=== PATIENT | male | born 1975 | race Caucasian/White ===

== ENCOUNTER 2019-12-01 08:58 | Inpatient (IN) | payer OTHER ==
[2019-12-01 09:46] VITALS: BMI 41.8
--- NOTE | 2019-12-01 10:17 | HP ---
CIWA Score Nausea/Vomitin Muscle Tremors: 3 Anxiety: 3 Agitation: 3 Paroxysmal Sweats: 1-Minimal Palms Moist Orientation: 0-Oriented Tacttile Disturbances: 1-Very Mild Itch/Numbness Auditory Disturbances: 0-None Visual Disturbances: 0-None Headache: 2-Mild CIWA-Ar Total Score: 15 - Admission Criteria OASAS Guidelines: Admission for Medically Managed Detox: Requires at least one of the followin. CIWA greater than 12 2. Seizures within the past 24 hours 3. Delirium tremens within the past 24 hours 4. Hallucinations within the past 24 hours 5. Acute intervention needed for co occurring medical disorder 6. Acute intervention needed for co occurring psychiatric disorder 7. Severe withdrawal that cannot be handled at a lower level of care (continued vomiting, continued diarrhea, abnormal vital signs) requiring intravenous medication and/or fluids 8. 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 Pulmonary: Yes: Asthma, Other (TIANA) Infectious Disease: Yes: Other (h/o recurrent celullitis ,) Dermatology: Yes: Other - Past Surgical History Additional Past Surgical History: varicose veins surgery in 2013 - Smoking History Smoking history: Current every day smoker Have you smoked in the past 12 months: Yes Aproximately how many cigarettes per day: 20 - Alcohol/Substance Use Hx Alcohol Use: No History of Substance Use: reports: Heroin (lat dose yesterday) - Social History Usual Living Arrangement: Yes: With Spouse ADL: Support Services Occupation: disable Admission ROS S - [employer] Chief Complaint: i need help to stop drinking alcohol.also heroin,xanax abused,mmtp 130 mgs/day Allergies/Adverse Reactions: Allergies Allergy/AdvReac Type Severity Reaction Status Date / Time Sulfa (Sulfonamide Allergy Intermediate Swelling Verified 12/01/19 09:25 Antibiotics) [Sulfa(Sulfonamide Antibiotics)] History of Present Illness: this 44 years old male with alcohol dependence,also heroin,xanax abused,mmtp 130 mgs/day,last medicated today last treatment in 2014 syncope denied seizure nicotine dependence longest sobriety 2 years varicose vein surgery in 2014 cellulitis left leg Exam Limitations: No Limitations - Ebola screening Have you traveled outside of the country in the last 21 days: No Have you had contact with anyone from an Ebola affected area: No Do you have a fever: No - Review of Systems Constitutional: Loss of Appetite, Malaise, Night Sweats, Changes in sleep EENT: reports: Nose Congestion Respiratory: reports: No Symptoms reported Cardiac: reports: No Symptoms Reported GI: reports: Diarrhea, Nausea, Vomiting : reports: No Symptoms Reported Musculoskeletal: reports: Back Pain, Muscle Pain Integumentary: reports: Dryness, Erythema Neuro: reports: Headache, Tremors Endocrine: reports: No Symptoms Reported Hematology: reports: No Symptoms Reported Psychiatric: reports: No Sypmtoms Reported, Judgement Intact, Mood/Affect Appropiate, Orientated x3 Other Systems: Reviewed and Negative Patient History - Patient Medical History Hx Anemia: No Hx Asthma: Yes (on albuterol inhaler) Hx Chronic Obstructive Pulmonary Disease (COPD): No Hx Cancer: No Hx Cardiac Disorders: No (PVD) Hx Congestive Heart Failure: No Hx Hypertension: No Hx Hypercholesterolemia: No Hx Pacemaker: No HX Cerebrovascular Accident: No Hx Seizures: No Hx Dementia: No Hx Diabetes: No Hx Gastrointestinal Disorders: No Hx Liver Disease: No Hx Genitourinary Disorders: No Hx Sexually Transmitted Disorders: No Hx Renal Disease (ESRD): No Hx Thyroid Disease: No Hx Human Immunodeficiency Virus (HIV): No (last 07/18 negative) Hx Hepatitis C: Yes (hep b) Hx Depression: No Hx Suicide Attempt: No Hx Bipolar Disorder: Yes (on seroquel and ambien, but pt chalenges this diag. ) Hx Schizophrenia: No Other Medical History: no suicidal,no homicidal - Patient Surgical History Past Surgical History: Yes Hx Neurologic Surgery: No Hx Cataract Extraction: No Hx Cardiac Surgery: No Hx Lung Surgery: No Hx Breast Surgery: No Hx Breast Biopsy: No Hx Abdominal Surgery: No Hx Appendectomy: No Hx Cholecystectomy: No Hx Genitourinary Surgery: No Hx Section: No Hx Orthopedic Surgery: No Other Surgical History: lazer sx veins chava calfs, bilateral venous vascular failures Anesthesia Reaction: No - PPD History Previous Implant?: Yes Documented Results: Negative w/o proof Implanted On Prior [facility] Admission?: Yes Date: 10/10/15 PPD to be Administered?: Yes - Smoking Cessation Smoking history: Current every day smoker Have you smoked in the past 12 months: Yes Aproximately how many cigarettes per day: 20 Hx Chewing Tobacco Use: No Initiated information on smoking cessation: Yes 'Breaking Loose' booklet given: 12/01/19 - Substance & Tx. History Hx Alcohol Use: Yes Hx Substance Use: Yes Substance Use Type: Alcohol, Cocaine, Heroin, Tranquilizers Hx Substance Use Treatment: Yes (2013 [facility] rehab) - Substances abused Cocaine Substance route: Injection Frequency: Daily Amount used: 1- 3 dime bag Age of first use: 31 Date of last use: 11/30/19 Alcohol Substance route: Oral Frequency: Daily Amount used: 3 limarita & 1/2 bacardi Age of first use: 8 Date of last use: 11/30/19 Heroin Substance route: Injection Frequency: Daily Amount used: 1-3 bags Age of first use: 31 Date of last use: 12/01/19 Alprazolam (Xanax) Substance route: Oral Frequency: 3-6 times per week Amount used: 2 sticks Age of first use: 44 Date of last use: 12/01/19 Admission Physical Exam BHS - Vital Signs Vital Signs: Vital Signs - 24 hr 12/01/19 09:21 Temperature 97.4 F L Pulse Rate 77 Respiratory 20 Rate Blood Pressure 123/74 - Physical General Appearance: Yes: Moderate Distress, Tremorous, Irritable, Sweating, Anxious HEENTM: Yes: Normal ENT Inspection, ISMA, Pharynx Normal Respiratory: Yes: Lungs Clear, Normal Breath Sounds, No Respiratory Distress Neck: Yes: Within Normal Limits, Supple, Trachea in good position Breast: Yes: Within Normal Limits Cardiology: Yes: Within Normal Limits, Regular Rhythm, Regular Rate, S1, S2 Abdominal: Yes: Normal Bowel Sounds, Non Tender, Flat, Soft Genitourinary: Yes: Within Normal Limits Back: Yes: Muscle Spasm Musculoskeletal: Yes: Back pain, Muscle Pain Extremities: Yes: Tremors, Inflammation, Other (varicose veins left leg) Neurological: Yes: 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 (3) Edema extremities Current Visit: No Status: Chronic Comment: trace edema, wants to stay off Lasix for now; monitor and treat according (4) HTN (hypertension) Current Visit: No Status: Chronic Comment: HTN elevated today; off lasix, monitor; discussed low salt diet, activity as luis (5) Methadone maintenance therapy patient Current Visit: No Status: Chronic Comment: Recently increased dosage (6) Cellulitis of left leg Current Visit: Yes Status: Acute (7) Heroin abuse Current Visit: Yes Status: Acute (8) Cocaine abuse Current Visit: Yes Status: Acute (9) PVD (peripheral vascular disease) Current Visit: No Status: Chronic Comment: manage by Dr. Cash; urge pt to make appt with vascular clinic Cleared for Admission S - Detox or Rehab [facility] Level of Care: Medically Managed Detox Regimen/Protocol: Ativan Inpatient Rehab Admission - Rehab Decision to Admit Inpatient rehab admission?: No
[2019-12-01] MEDS ORDERED: ACETAMINOPHEN 325 MG TABLET (FP) PO PRN ×2 (10:38)
[2019-12-01] MEDS ORDERED: METHOCARBAMOL 500 MG TABLET PO PRN (10:38)
[2019-12-01] MEDS ORDERED: MAGNESIUM CITRATE 300 ML BOTTLE PO PRN (10:38)
[2019-12-01] MEDS ORDERED: LORazepam 1 MG TABLET PO PRN (10:38)
[2019-12-01] MEDS ORDERED: MAGNESIUM HYDROX 2400MG/30ML ORAL SUSPENSION 30 ML CUP PO PRN (10:38)
[2019-12-01] MEDS ORDERED: BISMUTH SUBSALICYLATE 262 MG/15 ML BTL PO PRN (10:38)
[2019-12-01] MEDS ORDERED: MENTHOL/PHENOL 1 EACH UD MM PRN (10:38)
[2019-12-01] MEDS ORDERED: IBUPROFEN 400 MG TABLET (FP) PO PRN (10:38)
[2019-12-01] MEDS ORDERED: hydrOXYzine PAMOATE 25 MG CAPSULE (FP) PO PRN (10:38)
[2019-12-01] MEDS ORDERED: MELATONIN 5 MG TABLETS PO PRN (10:38)
[2019-12-01] MEDS ORDERED: MAG HYDROX/AL HYDROX/SIMETH 30 ML UNIT-DOSE CUP PO PRN (10:38)
[2019-12-01] MEDS: FUROSEMIDE 40 MG TABLET (FP) PO SCH (11:46)
[2019-12-01] MEDS: NICOTINE 21 MG/24 HOURS TOPICAL PATCH TD SCH (11:46)
[2019-12-01] MEDS: LORazepam 2 MG TABLET PO SCH ×3 (11:46→22:45)
[2019-12-01] MEDS ORDERED: ALBUTEROL SO4 2.5/IPRATROPIUM 0.5 INH SOL 3 ML VIAL.NEB. NEB PRN (11:48)
[2019-12-01] MEDS: BUDESONIDE/FORMETEROL FUMARATE 80/4.5 mcg INHALER IH SCH ×2 (14:46→22:48)
[2019-12-01] MEDS: CLINDAMYCIN HCL 150 MG CAPSULE (FP) PO SCH ×2 (14:47→22:45)
[2019-12-01 15:01] LABS: HEMATOCRIT 34.3 % (35.4-49); HEMOGLOBIN 11.1 GM/dL (11.7-16.9); MCH 29.3 pg (25.7-33.7); MCHC 32.5 g/dl (32.0-35.9); MEAN CELL VOLUME 90.3 fl (80-96); MEAN PLT VOLUME 8.8 fl (7.5-11.1); PLATELET COUNT 278 K/MM3 (134-434); RDW 13.7 % (11.9-15.9); WHITE BLOOD COUNT 5.1 K/mm3 (4.0-10.0)
--- NOTE | 2019-12-01 15:15 | EKG ---
Test Reason : Blood Pressure : / mmHG Vent. Rate : 072 BPM Atrial Rate : 072 BPM P-R Int : 152 ms QRS Dur : 114 ms QT Int : 432 ms P-R-T Axes : 071 065 065 degrees QTc Int : 473 ms NORMAL SINUS RHYTHM NORMAL ECG WHEN COMPARED WITH ECG OF 06-APR-2017 08:59, NO SIGNIFICANT CHANGE WAS FOUND Confirmed by RACHAEL CANNON MD ([id number]) on 12/01/2019 3:15:04 PM Referred By: Confirmed By:RACHAEL CANNON MD
[2019-12-01 15:17] LABS: ALBUMIN 3.4 g/dl (3.4-5.0); BILIRUBIN,TOTAL 0.4 mg/dL (0.2-1); BLOOD UREA NITROGEN 17.7 mg/dL (7-18); POTASSIUM 4.7 mmol/L (3.5-5.1); TOT PROT 8.1 g/dl (6.4-8.2)
[2019-12-01] MEDS: NICOTINE POLACRILEX 2 MG GUM BUC PRN ×2 (19:56→22:47)
[2019-12-01] MEDS: THIAMINE HCL 100 MG TABLET (FP) PO SCH (22:45)
[2019-12-01] MEDS: FLUOCINONIDE 0.05% CREAM (15 GM TUBE) TP SCH (22:47)
[2019-12-01] MEDS: ALBUTEROL SO4 8 GM HFA INHALER IH PRN (22:49)
[2019-12-02] MEDS: NICOTINE POLACRILEX 2 MG GUM BUC PRN ×4 (02:11→20:11)
[2019-12-02] MEDS ORDERED: METHADONE HCL 10 MG TABLET ONE (04:47)
[2019-12-02] MEDS ORDERED: METHADONE HCL 40 MG DISPERSABLE TABLET ONE (04:48)
[2019-12-02] MEDS: METHADONE 120 MG, METHADONE 10 MG PO SCH (05:32)
[2019-12-02] MEDS: CLINDAMYCIN HCL 150 MG CAPSULE (FP) PO SCH ×3 (05:32→21:24)
[2019-12-02] MEDS: LORazepam 2 MG TABLET PO SCH ×4 (05:33→22:28)
[2019-12-02] MEDS ORDERED: METHADONE HCL 10 MG TABLET PO SCH (06:00)
[2019-12-02] MEDS: FLUOCINONIDE 0.05% CREAM (15 GM TUBE) TP SCH ×2 (10:30→21:24)
[2019-12-02] MEDS: PRENATAL VITAMINS W/ FOLIC ACID TABLET (FP) PO SCH (10:42)
[2019-12-02] MEDS: BUDESONIDE/FORMETEROL FUMARATE 80/4.5 mcg INHALER IH SCH ×2 (10:42→21:24)
[2019-12-02] MEDS: NICOTINE 21 MG/24 HOURS TOPICAL PATCH TD SCH (10:43)
[2019-12-02 10:46] LABS: URINE APPEARANCE CLEAR; URINE BILIRUBIN NEGATIVE (NEGATIVE); URINE COLOR YELLOW; URINE GLUCOSE (UA) NEGATIVE (NEGATIVE); URINE KETONE NEGATIVE (NEGATIVE); URINE LEUK ESTERASE NEGATIVE (NEGATIVE); URINE NITRITE NEGATIVE (NEGATIVE); URINE PROTEIN NEGATIVE (NEGATIVE)
[2019-12-02] MEDS: FUROSEMIDE 40 MG TABLET (FP) PO SCH (10:46)
--- NOTE | 2019-12-02 15:10 | PN ---
S CIWA - CIWA Score Nausea/Vomitin-Mild Nausea/No Vomiting Muscle Tremors: 1-None Visible, but [place] Anxiety: 1-Mildly Anxious Agitation: 0-Normal Activity Paroxysmal Sweats: 3 Orientation: 0-Oriented Tacttile Disturbances: 2-Mild Itch/Numbness/Burn Auditory Disturbances: 0-None Visual Disturbances: 0-None Headache: 0-None Present CIWA-Ar Total Score: 8 BHS Progress Note (SOAP) Subjective: INTERRUPTED SLEEP, SWEATS, BODYACHES, NECK AND LEG PAINS Objective: 12/02/19 15:09 Vital Signs Temperature 96.8 F L 12/02/19 13:19 Pulse Rate 92 H 12/02/19 13:19 Respiratory Rate 20 12/02/19 13:19 Blood Pressure 127/65 12/02/19 13:19 O2 Sat by Pulse Oximetry (%) Laboratory Tests 12/01/19 12/01/19 12/01/19 11:20 11:20 11:20 WBC 5.1 RBC 3.80 L Hgb 11.1 L Hct 34.3 L MCV 90.3 MCH 29.3 MCHC 32.5 RDW 13.7 Plt Count 278 MPV 8.8 Sodium 138 Potassium 4.7 Chloride 106 Carbon Dioxide 29 Anion Gap 4 L BUN 17.7 Creatinine 1.0 Est GFR (CKD-EPI)AfAm 107.12 Est GFR (CKD-EPI)NonAf 92.42 Random Glucose 84 Calcium 9.0 Total Bilirubin 0.4 AST 20 ALT 22 Alkaline Phosphatase 96 Total Protein 8.1 Albumin 3.4 Urine Color Urine Appearance Urine pH Ur Specific [place] Urine Protein Urine Glucose (UA) Urine Ketones Urine Blood Urine Nitrite Urine Bilirubin Urine Urobilinogen Ur Leukocyte Esterase RPR Titer Nonreactive 12/02/19 07:40 WBC RBC Hgb Hct MCV MCH MCHC RDW Plt Count MPV Sodium Potassium Chloride Carbon Dioxide Anion Gap BUN Creatinine Est GFR (CKD-EPI)AfAm Est GFR (CKD-EPI)NonAf Random Glucose Calcium Total Bilirubin AST ALT Alkaline Phosphatase Total Protein Albumin Urine Color Yellow Urine Appearance Clear Urine pH 6.0 Ur Specific [place] 1.016 Urine Protein Negative Urine Glucose (UA) Negative Urine Ketones Negative Urine Blood Negative Urine Nitrite Negative Urine Bilirubin Negative Urine Urobilinogen 1.0 Ur Leukocyte Esterase Negative RPR Titer OBESE M PT DROWSY EATTING FOOD IN NAD Assessment: 12/02/19 15:10 WITHDRAWAL SX'S CELLULIITIS L L E mild anemia 12/02/19 15:11 12/02/19 15:13 Plan: cont detox increase fluids cont clindamycin cont lasix leg elevation
[2019-12-02] MEDS: ALBUTEROL SO4 8 GM HFA INHALER IH PRN (20:11)
[2019-12-02] MEDS: THIAMINE HCL 100 MG TABLET (FP) PO SCH (21:24)
[2019-12-03] MEDS ORDERED: METHADONE HCL 10 MG TABLET ONE (05:31)
[2019-12-03] MEDS ORDERED: METHADONE HCL 40 MG DISPERSABLE TABLET ONE (05:32)
[2019-12-03] MEDS: METHADONE 120 MG, METHADONE 10 MG PO SCH (07:06)
[2019-12-03] MEDS: CLINDAMYCIN HCL 150 MG CAPSULE (FP) PO SCH ×3 (07:06→22:11)
[2019-12-03] MEDS: LORazepam 1 MG TABLET PO SCH ×4 (07:07→22:11)
[2019-12-03] MEDS: ALBUTEROL SO4 8 GM HFA INHALER IH PRN (07:08)
[2019-12-03] MEDS: NICOTINE POLACRILEX 2 MG GUM BUC PRN ×4 (07:16→17:11)
[2019-12-03] MEDS: FLUOCINONIDE 0.05% CREAM (15 GM TUBE) TP SCH ×2 (10:40→22:12)
[2019-12-03] MEDS: FUROSEMIDE 40 MG TABLET (FP) PO SCH (10:40)
[2019-12-03] MEDS: PRENATAL VITAMINS W/ FOLIC ACID TABLET (FP) PO SCH (10:40)
[2019-12-03] MEDS: BUDESONIDE/FORMETEROL FUMARATE 80/4.5 mcg INHALER IH SCH ×2 (10:40→22:12)
[2019-12-03] MEDS: NICOTINE 21 MG/24 HOURS TOPICAL PATCH TD SCH (10:41)
--- NOTE | 2019-12-03 13:54 | PN ---
S CIWA - CIWA Score Nausea/Vomitin-Mild Nausea/No Vomiting Muscle Tremors: 2 Anxiety: 1-Mildly Anxious Agitation: 2 Paroxysmal Sweats: 2 Orientation: 0-Oriented Tacttile Disturbances: 0-None Auditory Disturbances: 0-None Visual Disturbances: 0-None Headache: 1-Very Mild CIWA-Ar Total Score: 9 BHS Progress Note (SOAP) Subjective: Pt here for alcohol detox, on MAT methadone O: Vital Signs - 24 hr 12/02/19 12/02/19 12/03/19 17:24 21:47 00:30 Temperature 97.7 F 97.7 F Pulse Rate 88 88 Respiratory 18 18 18 Rate Blood Pressure 122/82 140/77 12/03/19 12/03/19 12/03/19 03:40 07:21 09:59 Temperature 97 F L 97.7 F Pulse Rate 75 99 H Respiratory 18 18 16 Rate Blood Pressure 129/83 150/83 Laboratory Tests 12/01/19 12/01/19 12/01/19 11:20 11:20 11:20 WBC 5.1 RBC 3.80 L Hgb 11.1 L Hct 34.3 L MCV 90.3 MCH 29.3 MCHC 32.5 RDW 13.7 Plt Count 278 MPV 8.8 Sodium 138 Potassium 4.7 Chloride 106 Carbon Dioxide 29 Anion Gap 4 L BUN 17.7 Creatinine 1.0 Est GFR (CKD-EPI)AfAm 107.12 Est GFR (CKD-EPI)NonAf 92.42 Random Glucose 84 Calcium 9.0 Total Bilirubin 0.4 AST 20 ALT 22 Alkaline Phosphatase 96 Total Protein 8.1 Albumin 3.4 Urine Color Urine Appearance Urine pH Ur Specific [place] Urine Protein Urine Glucose (UA) Urine Ketones Urine Blood Urine Nitrite Urine Bilirubin Urine Urobilinogen Ur Leukocyte Esterase RPR Titer Nonreactive 12/02/19 07:40 WBC RBC Hgb Hct MCV MCH MCHC RDW Plt Count MPV Sodium Potassium Chloride Carbon Dioxide Anion Gap BUN Creatinine Est GFR (CKD-EPI)AfAm Est GFR (CKD-EPI)NonAf Random Glucose Calcium Total Bilirubin AST ALT Alkaline Phosphatase Total Protein Albumin Urine Color Yellow Urine Appearance Clear Urine pH 6.0 Ur Specific [place] 1.016 Urine Protein Negative Urine Glucose (UA) Negative Urine Ketones Negative Urine Blood Negative Urine Nitrite Negative Urine Bilirubin Negative Urine Urobilinogen 1.0 Ur Leukocyte Esterase Negative RPR Titer mild anemia a/p: continue alcohol detox continue MAT methadone
[2019-12-03] MEDS: THIAMINE HCL 100 MG TABLET (FP) PO SCH (22:11)
[2019-12-04] MEDS ORDERED: LORazepam 0.5 MG TABLET PO PRN
[2019-12-04] MEDS ORDERED: METHADONE HCL 10 MG TABLET ONE (05:11)
[2019-12-04] MEDS ORDERED: METHADONE HCL 40 MG DISPERSABLE TABLET ONE (05:11)
[2019-12-04] MEDS: NICOTINE POLACRILEX 2 MG GUM BUC PRN (06:37)
[2019-12-04] MEDS: LORazepam 0.5 MG TABLET PO SCH ×2 (06:37→11:05)
[2019-12-04] MEDS: METHADONE 120 MG, METHADONE 10 MG PO SCH (06:37)
[2019-12-04] MEDS: CLINDAMYCIN HCL 150 MG CAPSULE (FP) PO SCH (06:37)
[2019-12-04 08:59] VITALS: BP 135/91; PULSE 101; TEMP 98.4
[2019-12-04] MEDS: NICOTINE 21 MG/24 HOURS TOPICAL PATCH TD SCH (11:04)
[2019-12-04] MEDS: FLUOCINONIDE 0.05% CREAM (15 GM TUBE) TP SCH (11:04)
[2019-12-04] MEDS: FUROSEMIDE 40 MG TABLET (FP) PO SCH (11:04)
[2019-12-04] MEDS: PRENATAL VITAMINS W/ FOLIC ACID TABLET (FP) PO SCH (11:05)
[2019-12-04] MEDS: BUDESONIDE/FORMETEROL FUMARATE 80/4.5 mcg INHALER IH SCH (11:05)
--- NOTE | 2019-12-04 16:53 | DS ---
[facility] Detox Discharge Summary Admission Date: 12/01/19 Discharge Date: 12/04/19 - History Present History: Alcohol Dependence, Opioid Dependence, Sedative Dependence, MMTP Additional Comments: Pt demanded to leave AMA despite encouragement from staff to complete detox. Pt instructed to call 911 RAQUEL if sick or withdrawal sxs and to see his PCP within 3 days. Pertinent Past History: Asthma Hepatitis B - Physical Exam Results Vital Signs: Vital Signs Temperature 98.4 F 12/04/19 08:58 Pulse Rate 101 H 12/04/19 08:58 Respiratory Rate 17 12/04/19 08:58 Blood Pressure 135/91 12/04/19 08:58 O2 Sat by Pulse Oximetry (%) Elevated b/p: denies htn, most likely withdrawal related, follow up with PCP for management Pertinent Admission Physical Exam Findings: Withdrawal sxs Laboratory Tests 12/01/19 12/01/19 12/01/19 11:20 11:20 11:20 WBC 5.1 RBC 3.80 L Hgb 11.1 L Hct 34.3 L MCV 90.3 MCH 29.3 MCHC 32.5 RDW 13.7 Plt Count 278 MPV 8.8 Sodium 138 Potassium 4.7 Chloride 106 Carbon Dioxide 29 Anion Gap 4 L BUN 17.7 Creatinine 1.0 Est GFR (CKD-EPI)AfAm 107.12 Est GFR (CKD-EPI)NonAf 92.42 Random Glucose 84 Calcium 9.0 Total Bilirubin 0.4 AST 20 ALT 22 Alkaline Phosphatase 96 Total Protein 8.1 Albumin 3.4 Urine Color Urine Appearance Urine pH Ur Specific [place] Urine Protein Urine Glucose (UA) Urine Ketones Urine Blood Urine Nitrite Urine Bilirubin Urine Urobilinogen Ur Leukocyte Esterase RPR Titer Nonreactive 12/02/19 07:40 WBC RBC Hgb Hct MCV MCH MCHC RDW Plt Count MPV Sodium Potassium Chloride Carbon Dioxide Anion Gap BUN Creatinine Est GFR (CKD-EPI)AfAm Est GFR (CKD-EPI)NonAf Random Glucose Calcium Total Bilirubin AST ALT Alkaline Phosphatase Total Protein Albumin Urine Color Yellow Urine Appearance Clear Urine pH 6.0 Ur Specific [place] 1.016 Urine Protein Negative Urine Glucose (UA) Negative Urine Ketones Negative Urine Blood Negative Urine Nitrite Negative Urine Bilirubin Negative Urine Urobilinogen 1.0 Ur Leukocyte Esterase Negative RPR Titer Labs reviewed: mild anemia noted, most likely due to alcoholism/drug use - Medication Discharge Medications: Ambulatory Orders Methadone [Dolophine -] 130 mg PO DAILY 08/17/14 Albuterol 0.083% Nebulizer Koki [Ventolin 0.083% Nebulizer Soln -] 1 amp NEB PRN #1 box 06/24/17 Multivit-Min/Iron Fum/Folic AC [Fpede-Przjndb-Cpetrdwb Tablet] 1 each PO DAILY # 30 tablet 06/24/17 Furosemide [Lasix] 20 mg PO DAILY #30 tablet 06/27/19 Budesonide [Pulmicort Flexhaler] 1 - 2 inh IH BID #1 [email or web address] 08/30/19 Fluocinonide 0.05% Cream [Lidex 0.05% Cream -] 1 applic TP DAILY #1 tube [place]-3S/Dha/Epa/Fish Oil/D3 [Fish Oil + D3 Softgel] 3 each PO DAILY #90 capsule 08/30/19 Nicotine Polacrilex [Nicotine Lozenge] 4 mg BC DAILY 12/01/19 - Diagnosis (1) Hepatitis B vaccination administered at current visit Current Visit: Yes Status: Acute (2) Asthma Current Visit: Yes Status: Chronic Qualifiers: Asthma severity: mild intermittent (3) Methadone maintenance therapy patient Current Visit: Yes Status: Chronic (4) Nicotine dependence Current Visit: Yes Status: Chronic Qualifiers: Nicotine product type: cigarettes Substance use status: uncomplicated Qualified Code(s): F17.210 - Nicotine dependence, cigarettes, uncomplicated (5) Elevated blood-pressure reading, without diagnosis of hypertension Current Visit: Yes Status: Acute - AMA Did Patient Leave Against Medical Advice: Yes (Instructed to call 911 RAQUEL if sick or withdrawal sxs)
[2019-12-05] MEDS ORDERED: LORazepam 0.5 MG TABLET PO ONE (05:00)
== END 2019-12-04 11:24 | disposition left against medical advice (07) | DRG 770 ==
LOC: YASAS 08:58 → Y6N 10:32
PROVIDERS: ADMIT Allergy & Immunology; ATTEND Allergy & Immunology
PROC: HZ2ZZZZ Detoxification Services for Substance Abuse Treatment (ICD-10-PCS; principal; 2019-12-01)
PROC: 3E0234Z Introduction of Serum, Toxoid and Vaccine into Muscle, Percutaneous Approach (ICD-10-PCS; 2019-12-01)
DX: F10.230 Alcohol dependence with withdrawal, uncomplicated (principal); F11.20 Opioid dependence, uncomplicated; F14.10 Cocaine abuse, uncomplicated; F17.210 Nicotine dependence, cigarettes, uncomplicated; F31.9 Bipolar disorder, unspecified; R03.0 Elevated blood-pressure reading, without diagnosis of hypertension; L03.116 Cellulitis of left lower limb; D64.9 Anemia, unspecified; G47.33 Obstructive sleep apnea (adult) (pediatric); R60.0 Localized edema; I73.9 Peripheral vascular disease, unspecified; Z88.2 Allergy status to sulfonamides; Z23 Encounter for immunization
CPT/HCPCS: 36415; 80053; 81003; 85027; 86593; 93005; 93010

== ENCOUNTER 2021-02-11 10:47 | Inpatient (IN) | payer OTHER ==
[2021-02-11 12:03] VITALS: BMI 47.9
[2021-02-11] MEDS ORDERED: MAGNESIUM CITRATE 300 ML BOTTLE PO PRN (12:37)
[2021-02-11] MEDS ORDERED: ONDANSETRON *ODT* 4 MG TABLET SL PRN (12:37)
[2021-02-11] MEDS ORDERED: MENTHOL/PHENOL 1 EACH UD MM PRN (12:37)
[2021-02-11] MEDS ORDERED: ACETAMINOPHEN 325 MG TABLET (FP) PO PRN ×2 (12:37)
[2021-02-11] MEDS ORDERED: MAGNESIUM HYDROX 2400MG/30ML ORAL SUSPENSION 30 ML CUP PO PRN (12:37)
[2021-02-11] MEDS ORDERED: chlordiazePOXIDE HCL 25 MG CAPSULE PO PRN (12:37)
[2021-02-11] MEDS ORDERED: BISMUTH SUBSALICYLATE 262 MG/15 ML BTL PO PRN (12:37)
[2021-02-11] MEDS ORDERED: MAG HYDROX/AL HYDROX/SIMETH 30 ML UNIT-DOSE CUP PO PRN (12:37)
[2021-02-11] MEDS ORDERED: AZITHROMYCIN 250 MG TABLET PO SCH (13:45)
[2021-02-11] MEDS ORDERED: AZITHROMYCIN 250 MG TABLET PO ONE (14:00)
[2021-02-11] MEDS ORDERED: PNEUMOC 13-VAL CONJ-DIP CRM/PF 0.5 ML DISP.SYRIN IM ONE (14:28)
[2021-02-11] MEDS: hydrOXYzine PAMOATE 25 MG CAPSULE (FP) PO SCH ×3 (14:35→22:37)
[2021-02-11] MEDS: FUROSEMIDE 20 MG TABLET (FP) PO SCH (14:35)
[2021-02-11] MEDS: NICOTINE 21 MG/24 HOURS TOPICAL PATCH TD SCH (14:38)
[2021-02-11] MEDS: ALBUTEROL SO4 HFA INHALER IH SCH ×4 (14:38→23:45)
[2021-02-11] MEDS: chlordiazePOXIDE HCL 25 MG CAPSULE PO SCH ×2 (17:53→22:37)
[2021-02-11] MEDS: NICOTINE POLACRILEX 2 MG GUM BUC PRN ×2 (17:55→20:43)
[2021-02-11 19:53] LABS: POTASSIUM 4.5 mmol/L (3.5-5.1)
[2021-02-11 19:54] LABS: HEMOGLOBIN 10.9 GM/dL (11.7-16.9); MCH 28.7 pg (25.7-33.7); MCHC 33.1 g/dl (32.0-35.9); MEAN CELL VOLUME 86.6 fl (80-96); MEAN PLT VOLUME 8.6 fl (7.5-11.1); PLATELET COUNT 279 K/MM3 (134-434); RBC 3.81 M/mm3 (4.00-5.60); RDW 14.7 % (11.9-15.9); WHITE BLOOD COUNT 10.8 K/mm3 (4.0-10.0)
[2021-02-11 20:04] LABS: ALBUMIN 3.6 g/dl (3.4-5.0); BLOOD UREA NITROGEN 16.7 mg/dL (7-18)
[2021-02-11 20:08] LABS: TOT PROT 7.6 g/dl (6.4-8.2)
[2021-02-11] MEDS: IBUPROFEN 400 MG TABLET (FP) PO PRN (20:40)
[2021-02-11] MEDS: BUDESONIDE/FORMETEROL FUMARATE 80/4.5 mcg INHALER IH SCH (22:34)
[2021-02-11] MEDS: CLOTRIMAZOLE 1% CREAM 15 GM TUBE TP SCH (22:36)
[2021-02-11] MEDS: THIAMINE HCL 100 MG TABLET (FP) PO SCH (22:37)
[2021-02-11] MEDS: MELATONIN 5 MG TABLETS PO SCH (22:37)
[2021-02-12] MEDS: chlordiazePOXIDE HCL 25 MG CAPSULE PO SCH ×4 (06:00→22:47)
[2021-02-12] MEDS ORDERED: METHADONE HCL 10 MG TABLET PO SCH (06:00)
[2021-02-12] MEDS: ALBUTEROL SO4 HFA INHALER IH SCH ×5 (06:01→22:56)
[2021-02-12] MEDS: hydrOXYzine PAMOATE 25 MG CAPSULE (FP) PO SCH ×5 (06:02→22:46)
[2021-02-12] MEDS: METHADONE 120 MG, METHADONE 30 MG PO SCH (06:03)
[2021-02-12] MEDS ORDERED: METHADONE HCL 40 MG DISPERSABLE TABLET ONE (06:03)
[2021-02-12] MEDS ORDERED: METHADONE HCL 10 MG TABLET ONE (06:03)
[2021-02-12] MEDS ORDERED: ERGOCALCIFEROL (VIT D2) 50,000 UNIT (1.25 MG) CAPSULE PO SCH (09:30)
[2021-02-12] MEDS ORDERED: AZITHROMYCIN 250 MG TABLET PO SCH (10:00)
[2021-02-12] MEDS: BUDESONIDE/FORMETEROL FUMARATE 80/4.5 mcg INHALER IH SCH ×2 (10:24→22:45)
[2021-02-12] MEDS: PRENATAL VITAMINS W/ FOLIC ACID TABLET (FP) PO SCH (10:24)
[2021-02-12] MEDS: NICOTINE 21 MG/24 HOURS TOPICAL PATCH TD SCH (10:24)
[2021-02-12] MEDS: CLOTRIMAZOLE 1% CREAM 15 GM TUBE TP SCH ×2 (10:25→22:46)
[2021-02-12] MEDS: FUROSEMIDE 20 MG TABLET (FP) PO SCH (10:27)
[2021-02-12] MEDS: IBUPROFEN 400 MG TABLET (FP) PO PRN (11:33)
[2021-02-12] MEDS ORDERED: FUROSEMIDE 20 MG TABLET (FP) PO ONE (11:40)
[2021-02-12] MEDS: NICOTINE POLACRILEX 2 MG GUM BUC PRN ×2 (11:40→17:17)
[2021-02-12] MEDS ORDERED: PNEUMOCOCCAL 23 VACCINE 0.5 ML VIAL IM ONE (12:00)
[2021-02-12] MEDS ORDERED: FLU VACCINE (FLULAVAL) PF 60 MCG/0.5 ML SYRINGE 2020-2021 IM ONE (12:00)
[2021-02-12] MEDS: THIAMINE HCL 100 MG TABLET (FP) PO SCH (22:46)
[2021-02-12] MEDS: MELATONIN 5 MG TABLETS PO SCH (22:46)
[2021-02-13] MEDS: ALBUTEROL SO4 HFA INHALER IH SCH ×4 (01:59→13:47)
[2021-02-13] MEDS ORDERED: METHADONE HCL 10 MG TABLET ONE (04:49)
[2021-02-13] MEDS ORDERED: METHADONE HCL 40 MG DISPERSABLE TABLET ONE (04:49)
[2021-02-13] MEDS: METHADONE 120 MG, METHADONE 30 MG PO SCH (07:52)
[2021-02-13] MEDS: chlordiazePOXIDE HCL 25 MG CAPSULE PO SCH ×4 (07:53→22:20)
[2021-02-13] MEDS: hydrOXYzine PAMOATE 25 MG CAPSULE (FP) PO SCH ×2 (07:55→10:50)
[2021-02-13] MEDS: NICOTINE 21 MG/24 HOURS TOPICAL PATCH TD SCH (10:49)
[2021-02-13] MEDS: CLOTRIMAZOLE 1% CREAM 15 GM TUBE TP SCH ×2 (10:49→22:20)
[2021-02-13] MEDS: PRENATAL VITAMINS W/ FOLIC ACID TABLET (FP) PO SCH (10:49)
[2021-02-13] MEDS: FUROSEMIDE 40 MG TABLET (FP) PO SCH (10:50)
[2021-02-13] MEDS: BUDESONIDE/FORMETEROL FUMARATE 80/4.5 mcg INHALER IH SCH ×2 (10:50→22:20)
[2021-02-13] MEDS: IBUPROFEN 400 MG TABLET (FP) PO PRN (17:34)
[2021-02-13] MEDS: ALBUTEROL SO4 HFA INHALER IH PRN ×2 (17:37→22:21)
[2021-02-13] MEDS: NICOTINE POLACRILEX 2 MG GUM BUC PRN ×2 (17:38→22:23)
[2021-02-13] MEDS: THIAMINE HCL 100 MG TABLET (FP) PO SCH (22:21)
[2021-02-13] MEDS: MELATONIN 5 MG TABLETS PO SCH (22:21)
[2021-02-14] MEDS ORDERED: chlordiazePOXIDE HCL 10 MG CAPSULE PO PRN
[2021-02-14] MEDS ORDERED: METHADONE HCL 10 MG TABLET ONE (04:39)
[2021-02-14] MEDS ORDERED: METHADONE HCL 40 MG DISPERSABLE TABLET ONE (04:40)
[2021-02-14] MEDS: chlordiazePOXIDE HCL 10 MG CAPSULE PO SCH ×4 (06:47→23:04)
[2021-02-14] MEDS: METHADONE 120 MG, METHADONE 30 MG PO SCH (06:47)
[2021-02-14] MEDS: PRENATAL VITAMINS W/ FOLIC ACID TABLET (FP) PO SCH (10:07)
[2021-02-14] MEDS: FUROSEMIDE 40 MG TABLET (FP) PO SCH (10:08)
[2021-02-14] MEDS: CLOTRIMAZOLE 1% CREAM 15 GM TUBE TP SCH ×2 (10:09→23:04)
[2021-02-14] MEDS: NICOTINE 21 MG/24 HOURS TOPICAL PATCH TD SCH (10:10)
[2021-02-14] MEDS: BUDESONIDE/FORMETEROL FUMARATE 80/4.5 mcg INHALER IH SCH ×2 (10:10→23:03)
[2021-02-14] MEDS: NICOTINE POLACRILEX 2 MG GUM BUC PRN ×3 (10:11→23:06)
[2021-02-14] MEDS: ALBUTEROL SO4 HFA INHALER IH PRN (17:30)
[2021-02-14] MEDS: THIAMINE HCL 100 MG TABLET (FP) PO SCH (23:03)
[2021-02-14] MEDS: MELATONIN 5 MG TABLETS PO SCH (23:03)
[2021-02-14] MEDS: hydrOXYzine PAMOATE 25 MG CAPSULE (FP) PO PRN (23:08)
[2021-02-14] MEDS: METHOCARBAMOL 500 MG TABLET PO PRN (23:08)
[2021-02-15] MEDS ORDERED: METHADONE HCL 10 MG TABLET ONE (04:19)
[2021-02-15] MEDS ORDERED: METHADONE HCL 40 MG DISPERSABLE TABLET ONE (04:20)
[2021-02-15] MEDS: ALBUTEROL SO4 HFA INHALER IH PRN ×3 (04:45→20:58)
[2021-02-15] MEDS: chlordiazePOXIDE HCL 10 MG CAPSULE PO SCH ×2 (05:18→18:01)
[2021-02-15] MEDS: METHADONE 120 MG, METHADONE 30 MG PO SCH (05:18)
[2021-02-15] MEDS: METHOCARBAMOL 500 MG TABLET PO PRN ×2 (05:27→22:28)
[2021-02-15] MEDS: PRENATAL VITAMINS W/ FOLIC ACID TABLET (FP) PO SCH (09:48)
[2021-02-15] MEDS: NICOTINE 21 MG/24 HOURS TOPICAL PATCH TD SCH (09:48)
[2021-02-15] MEDS: FUROSEMIDE 40 MG TABLET (FP) PO SCH (09:48)
[2021-02-15] MEDS: CLOTRIMAZOLE 1% CREAM 15 GM TUBE TP SCH ×2 (09:49→22:27)
[2021-02-15] MEDS: IBUPROFEN 600 MG TABLET (FP) PO PRN ×2 (09:51→23:54)
[2021-02-15] MEDS: BUDESONIDE/FORMETEROL FUMARATE 80/4.5 mcg INHALER IH SCH ×2 (09:52→22:27)
[2021-02-15] MEDS: NICOTINE POLACRILEX 2 MG GUM BUC PRN ×3 (10:30→20:57)
[2021-02-15 12:01] LABS: HEMATOCRIT 28.8 % (35.4-49); HEMOGLOBIN 9.4 GM/dL (11.7-16.9); MCH 28.5 pg (25.7-33.7); MCHC 32.7 g/dl (32.0-35.9); MEAN CELL VOLUME 87.2 fl (80-96); MEAN PLT VOLUME 8.3 fl (7.5-11.1); PLATELET COUNT 261 K/MM3 (134-434); WHITE BLOOD COUNT 5.3 K/mm3 (4.0-10.0)
[2021-02-15 12:27] LABS: POTASSIUM 4.2 mmol/L (3.5-5.1)
[2021-02-15 12:43] LABS: BLOOD UREA NITROGEN 12.2 mg/dL (7-18)
[2021-02-15 12:46] LABS: CREATININE 0.8 mg/dL (0.55-1.3)
[2021-02-15] MEDS: MELATONIN 5 MG TABLETS PO SCH (22:27)
[2021-02-15] MEDS: THIAMINE HCL 100 MG TABLET (FP) PO SCH (22:27)
[2021-02-15] MEDS: hydrOXYzine PAMOATE 25 MG CAPSULE (FP) PO PRN (22:28)
[2021-02-16] MEDS ORDERED: METHADONE HCL 10 MG TABLET ONE (04:38)
[2021-02-16] MEDS ORDERED: METHADONE HCL 40 MG DISPERSABLE TABLET ONE (04:39)
[2021-02-16] MEDS ORDERED: chlordiazePOXIDE HCL 10 MG CAPSULE PO ONE (05:00)
[2021-02-16] MEDS: METHADONE 120 MG, METHADONE 30 MG PO SCH (06:44)
[2021-02-16 09:44] VITALS: BP 131/81; PULSE 97; TEMP 98.6
== END 2021-02-16 10:05 | disposition home or self-care (01) | DRG 773 ==
LOC: YASAS 10:47 → Y3N 12:40
PROVIDERS: ADMIT Allergy & Immunology; ATTEND Allergy & Immunology
PROC: HZ2ZZZZ Detoxification Services for Substance Abuse Treatment (ICD-10-PCS; principal; 2021-02-11)
DX: F10.230 Alcohol dependence with withdrawal, uncomplicated (principal); F11.23 Opioid dependence with withdrawal; F14.20 Cocaine dependence, uncomplicated; F13.20 Sedative, hypnotic or anxiolytic dependence, uncomplicated; F17.210 Nicotine dependence, cigarettes, uncomplicated; L03.116 Cellulitis of left lower limb; I10 Essential (primary) hypertension; J45.20 Mild intermittent asthma, uncomplicated; I73.9 Peripheral vascular disease, unspecified; G47.33 Obstructive sleep apnea (adult) (pediatric); M54.5 Low back pain; G89.29 Other chronic pain; R60.0 Localized edema; Z88.2 Allergy status to sulfonamides
CPT/HCPCS: 36415; 80048; 80053; 85027; 86780; C9803; U0003

== ENCOUNTER 2022-05-07 12:56 | Inpatient (IN) | payer OTHER ==
[2022-05-07 13:06] VITALS: BMI 46.1
[2022-05-07] MEDS ORDERED: LOPERAMIDE HCL 2 MG CAPSULE PO PRN (13:38)
[2022-05-07] MEDS ORDERED: MAGNESIUM HYDROX 2400MG/30ML ORAL SUSPENSION 30 ML CUP PO PRN (13:38)
[2022-05-07] MEDS ORDERED: IBUPROFEN 400 MG TABLET (FP) PO PRN (13:38)
[2022-05-07] MEDS ORDERED: MAG HYDROX/AL HYDROX/SIMETH 30 ML UNIT-DOSE CUP PO PRN (13:38)
[2022-05-07] MEDS ORDERED: MAGNESIUM CITRATE 300 ML BOTTLE PO PRN (13:38)
[2022-05-07] MEDS ORDERED: P-EPHED 60MG/TRIPROLIDI 2.5MG TABLET PO PRN (13:38)
[2022-05-07] MEDS ORDERED: guaiFENesin 200 MG/10 ML 10 ML UNIT-DOSE CUPS PO PRN (13:38)
[2022-05-07] MEDS ORDERED: ACETAMINOPHEN 325 MG TABLET (FP) PO PRN (13:38)
[2022-05-07] MEDS: hydrOXYzine PAMOATE 25 MG CAPSULE (FP) PO SCH ×2 (20:40→21:31)
[2022-05-07] MEDS ORDERED: TUBERCULIN PPD 5 TU/0.1ML VIAL ID ONE (20:50)
[2022-05-07] MEDS: THIAMINE HCL 100 MG TABLET (FP) PO SCH (21:31)
[2022-05-07] MEDS: MELATONIN 5 MG TABLETS PO SCH (21:31)
[2022-05-08] MEDS: hydrOXYzine PAMOATE 25 MG CAPSULE (FP) PO SCH ×3 (06:26→13:11)
[2022-05-08] MEDS ORDERED: methaDONE HCL 40 MG DISPERSABLE TABLET PO SCH (07:00)
[2022-05-08] MEDS ORDERED: methaDONE HCL 10 MG TABLET ONE (07:20)
[2022-05-08] MEDS ORDERED: methaDONE HCL 40 MG DISPERSABLE TABLET ONE (07:20)
[2022-05-08] MEDS: PRENATAL VITAMINS W/ FOLIC ACID TABLET (FP) PO SCH (09:40)
[2022-05-08] MEDS: FUROSEMIDE 20 MG TABLET (FP) PO SCH (09:41)
[2022-05-08] MEDS: NICOTINE 10 MG CARTRIDGE (INHALER) IH PRN (09:41)
[2022-05-08] MEDS: NICOTINE 7 MG/24 HOURS TOPICAL PATCH TD SCH (09:41)
[2022-05-08 11:43] LABS: URINE APPEARANCE CLEAR; URINE BILIRUBIN NEGATIVE (NEGATIVE); URINE COLOR YELLOW; URINE GLUCOSE (UA) NEGATIVE (NEGATIVE); URINE KETONE NEGATIVE (NEGATIVE); URINE LEUK ESTERASE NEGATIVE (NEGATIVE); URINE NITRITE NEGATIVE (NEGATIVE); URINE PROTEIN NEGATIVE (NEGATIVE)
[2022-05-08] MEDS ORDERED: hydrOXYzine PAMOATE 25 MG CAPSULE (FP) PO PRN (13:43)
[2022-05-08] MEDS: THIAMINE HCL 100 MG TABLET (FP) PO SCH (21:09)
[2022-05-08] MEDS: MELATONIN 5 MG TABLETS PO SCH (21:09)
[2022-05-09] MEDS ORDERED: methaDONE HCL 10 MG TABLET ONE (02:38)
[2022-05-09] MEDS ORDERED: methaDONE HCL 40 MG DISPERSABLE TABLET ONE (02:38)
[2022-05-09 06:43] VITALS: BP 151/82; PULSE 77; TEMP 97.5
[2022-05-09] MEDS: NICOTINE 10 MG CARTRIDGE (INHALER) IH PRN (09:43)
[2022-05-09] MEDS: PRENATAL VITAMINS W/ FOLIC ACID TABLET (FP) PO SCH (09:43)
[2022-05-09] MEDS: NICOTINE 7 MG/24 HOURS TOPICAL PATCH TD SCH (09:43)
[2022-05-09] MEDS: FUROSEMIDE 20 MG TABLET (FP) PO SCH (09:44)
[2022-05-09 11:35] LABS: HEMOGLOBIN 11.3 GM/dL (11.7-16.9); MCH 28.6 pg (25.7-33.7); MCHC 33.1 g/dl (32.0-35.9); MEAN CELL VOLUME 86.3 fl (80-96); MEAN PLT VOLUME 8.2 fl (7.5-11.1); PLATELET COUNT 328 10^3/uL (134-434); RBC 3.94 M/mm3 (4.00-5.60); RDW 13.9 % (11.9-15.9); WHITE BLOOD COUNT 5.2 K/mm3 (4.0-10.0)
[2022-05-09 11:57] LABS: CALCIUM 8.9 mg/dL (8.5-10.1)
[2022-05-09 11:58] LABS: ALBUMIN 3.1 g/dl (3.4-5.0); BLOOD UREA NITROGEN 11.4 mg/dL (7-18)
[2022-05-09 12:01] LABS: CREATININE 0.9 mg/dL (0.55-1.3)
[2022-05-09 12:02] LABS: BILIRUBIN,TOTAL 0.2 mg/dL (0.2-1)
[2022-05-09 12:35] LABS: SYPHILIS W/ RPR CONF NON-REACTIVE (NONREACTIVE)
== END 2022-05-09 10:06 | disposition left against medical advice (07) | DRG 770 ==
LOC: YASAS 12:56 → Y3W 20:05
PROVIDERS: ADMIT Allergy & Immunology; ATTEND Psychiatry & Neurology Pain Medicine
PROC: HZ42ZZZ Group Counseling for Substance Abuse Treatment, Cognitive-Behavioral (ICD-10-PCS; principal; 2022-05-07)
DX: F10.20 Alcohol dependence, uncomplicated (principal); F11.20 Opioid dependence, uncomplicated; F14.20 Cocaine dependence, uncomplicated; F17.210 Nicotine dependence, cigarettes, uncomplicated; I10 Essential (primary) hypertension; J45.901 Unspecified asthma with (acute) exacerbation; G47.33 Obstructive sleep apnea (adult) (pediatric); E66.01 Morbid (severe) obesity due to excess calories; Z68.42 Body mass index [BMI] 45.0-49.9, adult; Z86.19 Personal history of other infectious and parasitic diseases
CPT/HCPCS: 36415; 80053; 81003; 85027; 86780; 86803; 87522; C9803-CS; U0003; U0005

== ENCOUNTER 2025-09-19 23:56 | Inpatient (IN) | payer OTHER ==
[2025-09-20] MEDS ORDERED: NALOXONE (NARCAN) HCL 4 MG/0.1 ML SPRAY NS ONE (00:12)
[2025-09-20] MEDS ORDERED: SOTALOL HCL 80 MG TABLET (FP) PO ONE (00:19)
[2025-09-20] MEDS: ALBUTEROL SO4 2.5/IPRATROPIUM 0.5 INH SOL 3 ML VIAL.NEB. NEB SCH ×3 (00:50→07:37)
[2025-09-20] MEDS: methylPREDNISolone NA SUCC 125 MG/2 ML VIAL IVPUSH ONE ×2 (00:57→06:54)
[2025-09-20] MEDS: ALBUTEROL SO4 HFA INHALER IH ONE (01:00)
[2025-09-20 01:03] LABS: COCAINE, UR POSITIVE (NEGATIVE); PHENCYCLIDINE,URINE NEGATIVE (NEGATIVE); URINE APPEARANCE CLEAR; URINE BILIRUBIN NEGATIVE (NEGATIVE); URINE COLOR YELLOW; URINE GLUCOSE (UA) 3+ (NEGATIVE); URINE KETONE NEGATIVE (NEGATIVE); URINE LEUK ESTERASE NEGATIVE (NEGATIVE); URINE NITRITE NEGATIVE (NEGATIVE); URINE PROTEIN NEGATIVE (NEGATIVE); URINE UROBILINOGEN 0.2 mg/dL (0.2-1.0)
[2025-09-20 01:04] LABS: METHADONE, UR POSITIVE (NEGATIVE); OPIATES, URI POSITIVE (NEGATIVE); URINE AMPHETAMINES NEGATIVE (NEGATIVE); URINE BARBITURATES NEGATIVE (NEGATIVE); URINE BENZODIAZEPINES NEGATIVE (NEGATIVE)
[2025-09-20] MEDS: NALOXONE (NYS OPIOID OVERDOSE PROGRAM) 4 MG/0.1 ML SPRAY NS SCH (01:04)
[2025-09-20] MEDS ORDERED: ALBUTEROL SO4 2.5/IPRATROPIUM 0.5 INH SOL 3 ML VIAL.NEB. NEB ONE (01:06)
[2025-09-20] MEDS: MAGNESIUM SULF 50% (8.12 MEQ/2 ML-1 GM VIAL) IVPB ONE (01:10)
[2025-09-20] MEDS ORDERED: MAGNESIUM SULFATE IN WATER 2 GM/50 ML IVPB IVPB ONE (01:15)
[2025-09-20] MEDS ORDERED: KETAMINE HCL 200 MG/20 ML VIAL ONE (01:33)
[2025-09-20] MEDS ORDERED: ROCURONIUM BROMIDE 50 MG/5 ML VIAL ONE (01:34)
[2025-09-20 01:38] LABS: MCHC 30.9 g/dl (32.3-36.5); MEAN CELL VOLUME 98.3 fl (79.0-92.2); MEAN PLT VOLUME 10.7 fl (9.4-12.4); RDW 13.3 % (12.1-15.9)
[2025-09-20] MEDS: ROCURONIUM BROMIDE 50 MG/5 ML VIAL IV ONE (01:38)
[2025-09-20] MEDS: KETAMINE HCL 200 MG/20 ML VIAL IVPUSH ONE ×2 (01:39→03:19)
[2025-09-20] MEDS ORDERED: PROPOFOL 1,000,000 MCG/100 ML VIAL ONE (01:44)
[2025-09-20] MEDS: PROPOFOL 1,000,000 MCG/100 ML VIAL IVPB SCH (01:55)
[2025-09-20 02:06] LABS: BG HCT 46.0 % (35.4-49); GLUCOSE,RANDOM 110.0 mg/dL (74-106); VENOUS BASE EXCESS -3.6 mmol/L (-2-2); VENOUS O2 SATURATION 54.4 % (70-80); VENOUS PCO2 67.4 mmHg (38-52); VENOUS PH 7.205 (7.310-7.410)
[2025-09-20 02:07] LABS: TOT PROT 8.8 g/dl (6.4-8.2)
[2025-09-20 02:08] LABS: CO2 24.0 mmol/L (21-32)
[2025-09-20 02:09] LABS: ALK PHOS 77.0 U/L (40-150)
[2025-09-20 02:12] LABS: CREATININE 1.18 mg/dL (0.55-1.3); SGOT/AST 36.0 U/L (5-34); SGPT/ALT 21.0 U/L (0-55)
[2025-09-20] MEDS ORDERED: NITROGLYCERIN 25MG/D5W 250ML 25 MG/250 ML ML IVPB ONE (02:13)
[2025-09-20] MEDS ORDERED: AZITHROMYCIN IVPB 500 MG in DEXTROSE 5%-WATER - 250 ML IVPB ONE (02:25)
[2025-09-20] MEDS: NITROGLYCERIN 25MG/D5W 250ML 25 MG/250 ML ML IVPB SCH (02:25)
[2025-09-20] MEDS ORDERED: MIDAZOLAM HCL 2 MG/2 ML SINGLE DOSE VIAL ONE (02:51)
[2025-09-20] MEDS: MIDAZOLAM HCL 2 MG/2 ML SINGLE DOSE VIAL IVPUSH ONE (03:10)
[2025-09-20] MEDS ORDERED: KETAMINE HCL 1,000 MG in SODIUM CHLORIDE 480 ML IV SCH (04:00)
[2025-09-20] MEDS: FENTANYL NS IVPB 500 MCG/100 ML BAG IVPB SCH (04:17)
[2025-09-20 04:34] LABS: HIV INTERPRETATION NEGATIVE (NEGATIVE)
[2025-09-20] MEDS: KETAMINE HCL 1,000 MG in SODIUM CHLORIDE 480 ML IV SCH (04:42)
[2025-09-20] MEDS: methylPREDNISolone NA SUCC 40 MG/1 ML VIAL IVPUSH SCH (05:05)
[2025-09-20] MEDS: AZITHROMYCIN IVPB 500 MG/250 ML BAG IVPB ONE (05:05)
[2025-09-20] MEDS: CEFTRIAXONE 1 GM in DEXTROSE 5%-WATER - 50 ML IVPB ONE ×2 (05:05→07:40)
[2025-09-20] MEDS ORDERED: CEFTRIAXONE 2 GM in DEXTROSE 5%-WATER - 50 ML IVPB ONE (05:13)
[2025-09-20 05:22] LABS: ABSOLUTE IMMATURE GRANULOCYTES 0.05 x10^3/uL (0.0-0.031); BASOPHILS # 0.05 x10^3/uL (0.01-0.08); EOSINOPHIL % 1.1 % (0.8-7.0); EOSINOPHILS # 0.13 x10^3/uL (0.04-0.54); MCHC 31.2 g/dl (32.3-36.5); MEAN CELL VOLUME 94.3 fl (79.0-92.2); MEAN PLT VOLUME 10.3 fl (9.4-12.4); MONOCYTE # 0.59 x10^3/uL (0.30-0.82); MONOCYTE % 4.9 % (5.3-12.2); RDW 13.4 % (12.1-15.9)
[2025-09-20 05:30] LABS: INR 1.22 (0.83-1.09); PROTHROMBIN TIME (PATIENT) 13.3 SEC (9.7-13.0)
[2025-09-20 05:31] LABS: ARTERIAL BLD GAS O2 SATURATION 99.7 % (95-98); ARTERIAL BLOOD GAS BASE EXCESS -5.6 mmol/L (-2-2); ARTERIAL BLOOD GAS PCO2 60.60 mmHg (35-45); ARTERIAL BLOOD GAS PO2 404.4 mmHg (80-100); BG HCT 44.0 % (35.4-49); O2 CONTENT 2.18 % vol
[2025-09-20 05:33] LABS: ACTIVATED PTT 32.1 SECONDS (25.2-36.5)
[2025-09-20 05:40] LABS: GLUCOSE,RANDOM 113 mg/dL (74-106)
[2025-09-20 05:41] LABS: TOT PROT 7.5 g/dl (6.4-8.2)
[2025-09-20 05:42] LABS: CO2 24 mmol/L (21-32)
[2025-09-20 05:43] LABS: ALK PHOS 119 U/L (40-150)
[2025-09-20 05:46] LABS: CREATININE 0.90 mg/dL (0.55-1.3); SGOT/AST 58 U/L (5-34); SGPT/ALT 35 U/L (0-55)
[2025-09-20 05:54] LABS: N-TERMINAL BNP 159.5 pg/mL (0-299.9)
[2025-09-20 05:58] LABS: HCV DIAGNOSTIC IN-HOUSE W/RFLX REACTIVE (NONREACTIVE)
[2025-09-20 06:16] VITALS: BMI 27.0
[2025-09-20] MEDS: PIPERACILLIN/TAZOB 3.375 GM 3.375 GM in DEXTROSE 5%-WATER - 50 ML IVPB SCH (10:01)
[2025-09-20] MEDS: FAMOTIDINE 20 MG/50 ML IVPB 20 MG/50 ML MG IVPB SCH (10:02)
[2025-09-20] MEDS: HEPARIN NA (PORCINE) 5,000 UNITS/ML 1ML VIAL SQ SCH (10:02)
[2025-09-20] MEDS: MUPIROCIN 2% TOPICAL OINTMENT FOR DECOLONIZATION NS SCH (10:02)
[2025-09-20] MEDS: LABETALOL HCL 20 MG/4 ML VIAL IVPUSH ONE ×2 (15:12→18:21)
[2025-09-20] MEDS ORDERED: NALOXONE (NARCAN) HCL 4 MG/0.1 ML SPRAY NS SCH (15:19)
[2025-09-20] MEDS: ACETAMINOPHEN 1000 MG/100 ML BAG IVPB ONE (20:06)
[2025-09-20] MEDS: CHLORHEXIDINE GLUCONATE 4% CLEANSER FOR DECOLONIZATION TP SCH (21:00)
[2025-09-21 06:24] LABS: ABSOLUTE IMMATURE GRANULOCYTES 0.03 x10^3/uL (0.0-0.031); BASOPHILS # 0.01 x10^3/uL (0.01-0.08); EOSINOPHIL % 0.0 % (0.8-7.0); EOSINOPHILS # 0.00 x10^3/uL (0.04-0.54); MCHC 32.8 g/dl (32.3-36.5); MEAN CELL VOLUME 92.5 fl (79.0-92.2); MEAN PLT VOLUME 10.9 fl (9.4-12.4); MONOCYTE # 0.33 x10^3/uL (0.30-0.82); MONOCYTE % 3.9 % (5.3-12.2); RDW 13.2 % (12.1-15.9)
[2025-09-21 06:25] LABS: GLUCOSE,RANDOM 106.0 mg/dL (74-106); TOT PROT 7.4 g/dl (6.4-8.2)
[2025-09-21 06:26] LABS: CO2 26.0 mmol/L (21-32)
[2025-09-21 06:28] LABS: ALK PHOS 96.0 U/L (40-150)
[2025-09-21 06:30] LABS: SGOT/AST 29.0 U/L (5-34); SGPT/ALT 24.0 U/L (0-55)
[2025-09-21 06:31] LABS: CREATININE 0.89 mg/dL (0.55-1.3)
[2025-09-21] MEDS: methylPREDNISolone NA SUCC 40 MG/1 ML VIAL IVPUSH SCH (12:50)
[2025-09-21] MEDS ORDERED: LOSARTAN POTASSIUM 50 MG TABLET PO SCH (13:45)
[2025-09-21] MEDS: LOSARTAN POTASSIUM 25 MG TABLET PO SCH (15:55)
[2025-09-21] MEDS: LOSARTAN POTASSIUM 50 MG TABLET PO SCH (17:19)
[2025-09-21] MEDS: ALBUTEROL SO4 2.5/IPRATROPIUM 0.5 INH SOL 3 ML VIAL.NEB. NEB SCH ×2 (17:19→19:58)
[2025-09-21 18:03] VITALS: RESP 18
[2025-09-21] MEDS: PIPERACILLIN/TAZOB 3.375 GM 3.375 GM in DEXTROSE 5%-WATER - 50 ML IVPB SCH (19:03)
[2025-09-21] MEDS: HEPARIN NA (PORCINE) 5,000 UNITS/ML 1ML VIAL SQ SCH (21:13)
[2025-09-21] MEDS: FAMOTIDINE 20 MG/50 ML IVPB 20 MG/50 ML MG IVPB SCH (21:13)
[2025-09-21] MEDS ORDERED: MUPIROCIN 2% TOPICAL OINTMENT FOR DECOLONIZATION NS SCH (22:00)
[2025-09-21] MEDS ORDERED: CHLORHEXIDINE GLUCONATE 4% CLEANSER FOR DECOLONIZATION TP SCH (22:00)
[2025-09-22] MEDS: PIPERACILLIN/TAZOB 3.375 GM 3.375 GM in DEXTROSE 5%-WATER - 50 ML IVPB SCH ×2 (01:29→07:31)
[2025-09-22] MEDS: guaiFENesin 200 MG/10 ML 10 ML UNIT-DOSE CUPS PO PRN (06:25)
[2025-09-22 07:41] LABS: ABSOLUTE IMMATURE GRANULOCYTES 0.01 x10^3/uL (0.0-0.031); BASOPHILS # 0.02 x10^3/uL (0.01-0.08); EOSINOPHIL % 0.5 % (0.8-7.0); EOSINOPHILS # 0.03 x10^3/uL (0.04-0.54); MCHC 31.4 g/dl (32.3-36.5); MEAN CELL VOLUME 94.6 fl (79.0-92.2); MEAN PLT VOLUME 10.7 fl (9.4-12.4); MONOCYTE # 0.63 x10^3/uL (0.30-0.82); MONOCYTE % 10.7 % (5.3-12.2); RDW 13.3 % (12.1-15.9)
[2025-09-22 08:09] LABS: GLUCOSE,RANDOM 85.0 mg/dL (74-106); TOT PROT 7.0 g/dl (6.4-8.2)
[2025-09-22 08:10] LABS: CO2 25.0 mmol/L (21-32)
[2025-09-22 08:12] LABS: ALK PHOS 82.0 U/L (40-150)
[2025-09-22 08:14] LABS: SGPT/ALT 21.0 U/L (0-55)
[2025-09-22 08:15] LABS: CREATININE 0.98 mg/dL (0.55-1.3); SGOT/AST 17.0 U/L (5-34)
[2025-09-22] MEDS: FAMOTIDINE 20 MG TABLET PO SCH (09:34)
[2025-09-22] MEDS: AMOX TR/POT CLAV 875MG/125MG TABLETS (FP) PO SCH (09:34)
[2025-09-22] MEDS ORDERED: methylPREDNISolone NA SUCC 40 MG/1 ML VIAL IVPUSH SCH (10:00)
[2025-09-22] MEDS ORDERED: predniSONE 20 MG TABLET (UD) PO SCH (10:00)
[2025-09-22 10:28] VITALS: BP 98/62; PULSE 71; TEMP 97.9
[2025-09-22] MEDS: predniSONE 20 MG TABLET (UD) PO ONE (11:30)
[2025-09-22] MEDS: BUDESONIDE/FORMETEROL FUMARATE 160/4.5 mcg INHALER IH SCH (12:21)
[2025-09-22] MEDS: TIOTROPIUM BROMIDE 2.5 MCG (SPIRIVA) RESPIMAT INHALER IH SCH (12:23)
== END 2025-09-22 13:50 | disposition home or self-care (01) | DRG 951 ==
LOC: JER 23:56 → JERBED 09-20 01:56 → JICU 09-20 03:58 → J8W 09-21 15:55
PROVIDERS: ADMIT Internal Medicine Pulmonary Disease; ATTEND Nurse Practitioner Family
PROC: 03HY32Z Insertion of Monitoring Device into Upper Artery, Percutaneous Approach (ICD-10-PCS; principal; 2025-09-20)
PROC: 4A133B1 Monitoring of Arterial Pressure, Peripheral, Percutaneous Approach (ICD-10-PCS; 2025-09-20)
PROC: 4A133J1 Monitoring of Arterial Pulse, Peripheral, Percutaneous Approach (ICD-10-PCS; 2025-09-20)
PROC: 05HF33Z Insertion of Infusion Device into Left Cephalic Vein, Percutaneous Approach (ICD-10-PCS; 2025-09-20)
PROC: B54NZZA Ultrasonography of Left Upper Extremity Veins, Guidance (ICD-10-PCS; 2025-09-20)
PROC: 5A1935Z Respiratory Ventilation, Less than 24 Consecutive Hours (ICD-10-PCS; 2025-09-20)
PROC: 0BH17EZ Insertion of Endotracheal Airway into Trachea, Via Natural or Artificial Opening (ICD-10-PCS; 2025-09-20)
DX: J69.0 Pneumonitis due to inhalation of food and vomit (principal); J45.901 Unspecified asthma with (acute) exacerbation; J44.1 Chronic obstructive pulmonary disease with (acute) exacerbation; I24.89 Other forms of acute ischemic heart disease; I16.1 Hypertensive emergency; J44.0 Chronic obstructive pulmonary disease with (acute) lower respiratory infection; F19.20 Other psychoactive substance dependence, uncomplicated; F14.10 Cocaine abuse, uncomplicated; F11.20 Opioid dependence, uncomplicated; J96.01 Acute respiratory failure with hypoxia; J96.02 Acute respiratory failure with hypercapnia; I11.0 Hypertensive heart disease with heart failure; I50.9 Heart failure, unspecified
CPT/HCPCS: 36415; 36600; 70450-TC; 71045-TC-FY; 71275-TC; 80053; 80307; 81003; 82150; 82308; 82550; 82803; 82962; 83036; 83605; 83690; 83735; 83880; 84100; 84436; 84443; 84484; 85025; 85610; 85730; 86803; 86850; 86900; 86901; 87040; 87070; 87081; 87086; 87205; 87389; 87522; 87637-QW; 87899; 93005; 93010; 93306-TC; 94010; 94640; 99291